=== PATIENT | female | born 1990 | race Caucasian/White ===

== ENCOUNTER 2018-12-17 21:00 | Emergency (ER) | payer BC ==
--- NOTE | 2018-12-17 21:06 | UC ---
Headache HPI - HPI Summary HPI Summary: Patient is a 28 year old , who present today to the urgent care with headache that started today at around 4 PM. She has a history of headaches in the past and they get better with ibuprofen but today it was much worse and has not improved after 600 mg of ibuprofen. Pain is left frontal/posterior ocular and radiates to the back of the head on the left side. There is associated photophobia but no phonophobia. She has nausea but has not thrown up. She is currently on her menses at in the past she has had headaches at the time of menses but this feels different. She has a family history of migraine in mom and her grandmother but she has never been diagnosed officially with migraine so far. Pt has a headache which started at 1600 and has taken 600mg Ibuprofen and it hasn't improved. Light sensitivity, nausea and pain down the left side of the neck. She denies any specific stress. Denies any fever, chills, and no conjunctival redness, blurry y vision or increased lacrimation. - History Of Current Complaint Stated Complaint: HEADACHE Time Seen by Provider: 12/17/18 21:02 Hx Obtained From: Patient Hx Last Menstrual Period: 03/05/16 - Allergies/Home Medications Allergies/Adverse Reactions: Allergies Allergy/AdvReac Type Severity Reaction Status Date / Time calamine Allergy Rash Verified 12/17/18 21:13 Home Medications: Home Medications Atorvastatin* [Lipitor*] 10 mg PO 2100 12/17/18 [History Confirmed 12/17/18] Norethindrone-E.estradiol-Iron [Junel Fe 08/12 1-20 mg-Mcg] 1 tab PO DAILY [History Confirmed 12/17/18] PMH/Surg Hx/FS Hx/Imm Hx - Additional Past Medical History Additional PMH: Past Medical History : Asthma, renal calculi, hyperlipidemia Past Surgical History: [place] teeth extraction Family History : Migraine in mother and grandmother Social History : Occasional alcohol, non smoker, no drug use. Previously Healthy: Yes Other History Of: Negative For: HIV, Hepatitis B, Hepatitis C, Anticoagulant Therapy - Surgical History Surgical History: None Surgery Procedure, Year, and Place: WISDOM TEETH EXTRACTIONS - Family History Known Family History: Positive: Non-Contributory Negative: Blood Disorder - Social History Alcohol Use: Rare Substance Use Type: None Smoking Status (MU): Never Smoked Tobacco - Immunization History Most Recent Influenza Vaccination: [id number] Review of Systems All Other Systems Reviewed And Are Negative: Yes Constitutional: Positive: Negative Skin: Positive: Negative Eyes: Positive: Photophobia ENT: Positive: Negative Respiratory: Positive: Negative Cardiovascular: Positive: Negative Gastrointestinal: Positive: Nausea. Negative: Vomiting Genitourinary: Positive: Negative Motor: Positive: Negative Neurovascular: Positive: Negative Musculoskeletal: Positive: Negative Neurological: Positive: Headache Psychological: Positive: Negative Is Patient Immunocompromised?: No Physical Exam - Summary Physical Exam Summary: Physical Exam: Const: Appears well. No signs of apparent distress present. Alert and oriented x 3. Musculo: Walks with a normal gait. Head/Face: Atraumatic, normocephalic on inspection. Eyes: EOMI and PERRLA in both eyes. Conjunctivae clear. No discharge noted ENT: Hearing normal, TM normal appearing bilaterally No pharyngeal erythema or exudates . Uvula is midline. No cervical or submandibular lymphadenopathy noted. Respiratory: Respirations are unlabored. Lungs clear to auscultation bilaterally, no wheezing , rhonchi or rales noted . CVS: Regular rate and Rhythm, S1S2 normal , no murmurs identified. Extremities: Peripheral circulation is grossly normal. Pulses 2+ Abdomen : Soft non tender , nondistended , Bowel sounds present . No guarding , rebound tenderness or rigidity noted. Skin: No lesions or rash located on the upper extremities or on the lower extremities. Neuro: Cranial nerves II to XII intact, motor and sensory intact. DTR Intact bilaterally. Mood is normal. Affect is normal. GCS 15 Triage Information Reviewed: Yes Vital Signs Reviewed: Yes Headache Course/Dx - Course Course Of Treatment: During the visit today, we discussed the findings - suspect acute cluster headaches/migraine . She was given 1 dose of subcutaneous Imitrex and one dose of Zofran. She felt much better . I will prescribe the medication( imitrex and zofran ) to the pharmacy . We discussed that she should follow-up with her primary care doctor and consults neurology for her headaches. Patient expressed understanding . - Differential Dx/Diagnosis Differential Diagnosis/HQI/PQRI: Other - cluster headache Provider Diagnosis: Migraine Discharge - Sign-Out/Discharge Documenting (check all that apply): Patient Departure All imaging exams completed and their final reports reviewed: No Studies - Discharge Plan Condition: Stable Disposition: HOME Prescriptions: Ondansetron ODT TAB* [Zofran 4 MG Odt TAB*] 4 mg PO Q8H PRN #30 tab.odt PRN Reason: Nausea SUMAtriptan TAB* [Imitrex TAB*] 50 mg PO SEE INSTRUCTIONS PRN #9 tab PRN Reason: Migraine Headache Patient Education Materials: Cluster Headache (ED), Migraine Headache (ED), Acute Headache (ED) Referrals: Allie Bernal MD [Primary Care Provider] - 2 Days Shirley Burk MD [Medical Doctor] - Additional Instructions: Please start taking the medication as prescribed to the pharmacy . Follow up with your primary care doctor in 2 days. Please consult urology for evaluation of headaches Patients blood pressure slightly high in Urgent care today(prehypertensive range), plan follow up with PCP for better control Return to Urgent care / ER if symptoms get worse. - Billing Disposition and Condition Condition: STABLE Disposition: Home
[2018-12-17 21:12] VITALS: BP 124/82
[2018-12-17] MEDS ORDERED: SUMAtriptan SQ* 6 MG/0.5 ML VIAL SUBCUT ONE (21:27)
[2018-12-17] MEDS ORDERED: Ondansetron ODT TAB* 4 MG PO ONE ×2 (21:27→22:26)
== END 2018-12-17 22:43 | disposition home or self-care (01) ==
LOC: UCEAST 21:00
DX: G43.909 Migraine, unspecified, not intractable, without status migrainosus (principal)
CPT/HCPCS: 96372; 99212; A9270-GY; G0463; J3030

== ENCOUNTER 2019-02-13 07:26 | Emergency (ER) | payer BC ==
[2019-02-13 07:36] VITALS: BP 111/80
--- NOTE | 2019-02-13 08:08 | UC ---
Lower Extremity/Ankle HPI - HPI Summary HPI Summary: 28-year-old woman comes in with a chief complaint of injury to the left second toe. Several days ago the patient stubbed her toe on a weight. Had pain right away. Pain is worse with ambulation better with rest. Does have ecchymosis at the second toe. No numbness no skin break. - History of Current Complaint Chief Complaint: UCLowerExtremity Stated Complaint: TOE INJURY Time Seen by Provider: 02/13/19 08:07 Hx Last Menstrual Period: 01/16/19 Pain Intensity: 1 - Allergies/Home Medications Allergies/Adverse Reactions: Allergies Allergy/AdvReac Type Severity Reaction Status Date / Time calamine Allergy Rash Verified 02/13/19 07:36 PMH/Surg Hx/FS Hx/Imm Hx Previously Healthy: Yes Other History Of: Negative For: HIV, Hepatitis B, Hepatitis C, Anticoagulant Therapy - Surgical History Surgical History: None Surgery Procedure, Year, and Place: WISDOM TEETH EXTRACTIONS - Family History Known Family History: Positive: Non-Contributory Negative: Blood Disorder - Social History Alcohol Use: Rare Substance Use Type: None Smoking Status (MU): Never Smoked Tobacco - Immunization History Most Recent Influenza Vaccination: [id number] Review of Systems All Other Systems Reviewed And Are Negative: Yes Constitutional: Positive: Negative Skin: Positive: Bruising Eyes: Positive: Negative ENT: Positive: Negative Respiratory: Positive: Negative Cardiovascular: Positive: Negative Gastrointestinal: Positive: Negative Motor: Positive: Negative Neurovascular: Positive: Negative Musculoskeletal: Positive: Negative Neurological: Positive: Negative Psychological: Positive: Negative Is Patient Immunocompromised?: No Physical Exam Triage Information Reviewed: Yes Appearance: Well-Appearing, No Pain Distress, Well-Nourished Vital Signs: Initial Vital Signs Temp 97.7 F 02/13/19 07:32 Pulse 82 02/13/19 07:32 Resp 16 02/13/19 07:32 BP 111/80 02/13/19 07:32 Pulse Ox 97 02/13/19 07:32 Vital Signs Reviewed: Yes Eye Exam: Normal Eyes: Positive: Conjunctiva Clear Neck: Positive: Supple Respiratory: Positive: No respiratory distress Musculoskeletal: Positive: Other: - Left second toe is ecchymotic. Minimally tender to palpation. Has full range of motion. Normal sensation. Normal capillary refill. The rest of the foot is nontender to palpation with full range of motion. Neurological: Positive: Alert Psychological: Positive: Age Appropriate Behavior Skin: Positive: Other - Ecchymosis of the left second toe. Normal capillary refill. Lower Extremity Course/Dx - Course Course Of Treatment: Patient Name: MYRA YUSUF Medical Record#: [id number] Ordering Physician: Kasi Oden MD Acct.#: [id number] : 1990 Age: 28 Sex: F Location: [facility] Exam Date: 02/13/19738 ADM Status: REG ER Order Information: FOOT LEFT 3+ VWS Accession Number: [id number] CPT: 58568 INDICATION: Left foot injury. TECHNIQUE: 3 views of the left foot were obtained. FINDINGS: The bones are in normal alignment. No fracture is seen. Joint spaces appear maintained. IMPRESSION: NO EVIDENCE FOR FRACTURE. <Electronically signed by Chucky Yoder MD in OV> 02/13/19 7516 I discussed the x-rays with the patient. Patient was placed in a postop shoe by nursing patient neurovascular intact after placement postop shoe in clinic. Plan is ice elevation anti-inflammatories immobilization and follow previous sports medicine or orthopedics if not completely improved. - Differential Dx/Diagnosis Provider Diagnosis: Contusion of toe of left foot Discharge - Sign-Out/Discharge Documenting (check all that apply): Patient Departure All imaging exams completed and their final reports reviewed: Yes - Discharge Plan Condition: Stable Disposition: HOME Patient Education Materials: Foot Contusion (ED) Referrals: Rubi Dixon MD [Primary Care Provider] - [facility] [Provider Group] Jose Enrique Grace MD [Medical Doctor] - Additional Instructions: FOLLOW UP WITH SPORTS MEDICINE OR ORTHOPEDICS IF NOT COMPLETELY IMPROVED. GET RECHECKED SOONER IF YOUR CONDITION WORSENS OR ANY QUESTIONS OR CONCERNS. - Billing Disposition and Condition Condition: STABLE Disposition: Home
== END 2019-02-13 08:20 | disposition home or self-care (01) ==
LOC: UCEAST 07:26
DX: S90.122A Contusion of left lesser toe(s) without damage to nail, initial encounter (principal); W22.8XXA Striking against or struck by other objects, initial encounter; Y92.9 Unspecified place or not applicable
CPT/HCPCS: 99212; G0463

== ENCOUNTER 2020-11-18 02:11 | Inpatient (IN) ==
[2020-11-18] MEDS ORDERED: Buffered Lidocaine 1% SYRIN 1 ml INTRADERM ONE (03:54)
[2020-11-18] MEDS ORDERED: Lactated Ringers 1000 ml BAG 1,000 ML IV ONE ×2 (03:54→12:09)
[2020-11-18] MEDS ORDERED: Lactated Ringers 1000 ml BAG 1,000 ML IV SCH ×3 (04:00→18:00)
[2020-11-18] MEDS ORDERED: Morphine 10 MG/ML VIAL (1 ml) IV ONE (04:51)
[2020-11-18] MEDS ORDERED: Promethazine INJ(RESTRICTED) 25 MG/ML 1 ml VIAL IV PRN (04:51)
[2020-11-18 07:24] LABS: Urine Benzodiazepine Screen None Detected (None Detect); Urine Cannabinoids Screen None Detected (None Detect); Urine Opiates Screen None Detected (None Detect)
[2020-11-18] MEDS ORDERED: Oxytocin in LR 20 UNITS/1,000 ML BAG IVPB SCH ×2 (09:00→18:00)
[2020-11-18 09:28] LABS: ABS Lymphocytes 1.9 10^3/ul (1.0-4.8); ABS Monocytes 0.6 10^3/ul (0-0.8); ABS Neutrophils 8.5 10^3/ul (1.5-7.7); Eosinophil % 0.4 %; Hematocrit 39 % (35-47); Hemoglobin 13.1 g/dL (12.0-16.0); Lymphocyte % 17.3 %; Mean Corpuscular HGB Conc 33 g/dL (31-36); Mean Corpuscular Hemoglobin 28 pg (27-31); Mean Corpuscular Volume 85 fL (80-97); Mean Platelet Volume 8.4 fL (7.4-10.4); Platelet Count 189 10^3/uL (150-450); Red Blood Count 4.63 10^6 /uL (3.70-4.87); Red Cell Distribution Width 15 % (10-15); White Blood Count 11.1 10^3/uL (3.5-10.8)
[2020-11-18] MEDS ORDERED: OBEPIDURAL 250 ML EPIDURAL ONE (11:18)
[2020-11-18] MEDS ORDERED: Phenylephrine 40 mcg/mL 10mL (400mcg) SYRINGE IV PUSH PRN ×2 (12:09)
[2020-11-18] MEDS ORDERED: EPHEDrine (Pressors) 50 MG/ML VIAL IV PUSH PRN ×2 (12:09)
[2020-11-18] MEDS ORDERED: Sodium Citrate/Citric Acid LIQ 15 ML UDC PO PRN (12:09)
[2020-11-18] MEDS ORDERED: OBEPIDURAL 250 ML EPIDURAL SCH (13:00)
[2020-11-18] MEDS ORDERED: Sodium Citrate/Citric Acid LIQ 15 ML UDC PO ONE (17:08)
[2020-11-18] MEDS ORDERED: Witch Hazel PAD JAR TOPICAL PRN (17:55)
[2020-11-18] MEDS ORDERED: Lidocaine 1% VIAL 10 MG/ML VIAL ONE (18:07)
[2020-11-18] MEDS: Dibucaine 1% OINT 28.35 GM TUBE PR PRN (18:15)
[2020-11-18] MEDS ORDERED: Ammonia Inhalant 1 EA AMP ONE (20:30)
[2020-11-19 06:14] LABS: ABS Eosinophils 0.1 10^3/ul (0-0.6); ABS Lymphocytes 1.8 10^3/ul (1.0-4.8); ABS Monocytes 0.7 10^3/ul (0-0.8); ABS Neutrophils 8.7 10^3/ul (1.5-7.7); Eosinophil % 0.6 %; Hematocrit 30 % (35-47); Hemoglobin 9.8 g/dL (12.0-16.0); Mean Corpuscular HGB Conc 33 g/dL (31-36); Mean Corpuscular Hemoglobin 28 pg (27-31); Mean Corpuscular Volume 85 fL (80-97); Mean Platelet Volume 7.9 fL (7.4-10.4); Platelet Count 135 10^3/uL (150-450); Red Blood Count 3.51 10^6 /uL (3.70-4.87); Red Cell Distribution Width 15 % (10-15); White Blood Count 11.3 10^3/uL (3.5-10.8)
[2020-11-20 08:21] VITALS: BP 118/83
[2020-11-20] MEDS: Dibucaine 1% OINT 28.35 GM TUBE PR PRN (09:33)
== END 2020-11-20 14:54 | disposition home or self-care (01) | DRG 560 ==
LOC: MCHOBOUT 02:11 → MCHOB 03:49
PROVIDERS: ADMIT Midwife; ATTEND Midwife